=== PATIENT | female | born 1975 | race Caucasian/White ===

== ENCOUNTER 2022-09-09 09:21 | Observation (INO) ==
[2022-09-09] MEDS ORDERED: Lactated Ringers 1000 ml BAG 1,000 ML IV ONE ×2 (09:35→09:51)
[2022-09-09] MEDS ORDERED: PROPRANOLOL 1 MG/ML IV PUSH ONE (09:42)
[2022-09-09] MEDS ORDERED: Hydrocortisone INJ 100 MG/2ML 2 ML VIAL IV ONE (09:58)
[2022-09-09 10:18] LABS: ABS Lymphocytes 1.3 10^3/ul (1.0-4.8); ABS Monocytes 0.5 10^3/ul (0-0.8); ABS Neutrophils 3.3 10^3/ul (1.5-7.7); Eosinophil % 0.7 %; Hematocrit 35 % (35-47); Hemoglobin 11.8 g/dL (12.0-16.0); Mean Corpuscular HGB Conc 34 g/dL (31-36); Mean Corpuscular Hemoglobin 28 pg (27-31); Mean Corpuscular Volume 83 fL (80-97); Mean Platelet Volume 9.6 fL (7.4-10.4); Platelet Count 184 10^3/uL (150-450); Red Blood Count 4.21 10^6 /uL (3.70-4.87); Red Cell Distribution Width 13 % (10-15)
[2022-09-09 10:49] LABS: Albumin 3.8 g/dL (3.2-5.2); Albumin/Globulin Ratio 1.5 (1-3); Calcium 9.3 mg/dL (8.6-10.3); Creatinine, Serum 0.59 mg/dL (0.51-0.95); Globulin 2.6 g/dL (2-4); Potassium 3.4 mmol/L (3.5-5.0); Total Bilirubin 0.4 mg/dL (0.2-1.0); Total Protein 6.4 g/dL (6.4-8.9); eGFR CKD-EPI 113.2 (>60)
[2022-09-09] MEDS ORDERED: NS 0.9% IVPB ONE (11:00)
[2022-09-09] MEDS ORDERED: PROPRANOLOL IVPB ONE (11:00)
[2022-09-09 11:07] LABS: Free T3 6.6 pg/mL (2.5-3.9); Free T4 2.81 ng/dL (0.61-1.12)
[2022-09-09] MEDS ORDERED: Ondansetron 4 mg VIAL 2 MG/ML 2 ml VIAL IV PRN (12:59)
[2022-09-10 05:57] LABS: ABS Lymphocytes 1.7 10^3/ul (1.0-4.8); ABS Monocytes 0.6 10^3/ul (0-0.8); ABS Neutrophils 3.8 10^3/ul (1.5-7.7); Eosinophil % 0.6 %; Hematocrit 36 % (35-47); Hemoglobin 12.1 g/dL (12.0-16.0); Lymphocyte % 28.1 %; Mean Corpuscular HGB Conc 34 g/dL (31-36); Mean Corpuscular Hemoglobin 28 pg (27-31); Mean Corpuscular Volume 84 fL (80-97); Nucleated Red Blood Cells % 0.1; Platelet Count 211 10^3/uL (150-450); Red Cell Distribution Width 13 % (10-15); White Blood Count 6.2 10^3/uL (3.5-10.8)
[2022-09-10 06:08] LABS: Albumin 3.8 g/dL (3.2-5.2); Calcium 9.6 mg/dL (8.6-10.3); Magnesium 1.8 mg/dL (1.9-2.7); Total Bilirubin 0.6 mg/dL (0.2-1.0)
[2022-09-10 06:14] LABS: Albumin/Globulin Ratio 1.4 (1-3); Creatinine, Serum 0.61 mg/dL (0.51-0.95); Globulin 2.7 g/dL (2-4); Total Protein 6.5 g/dL (6.4-8.9); eGFR CKD-EPI 112.3 (>60)
[2022-09-10] MEDS ORDERED: Magnesium Sulfate IV 1GM/100ML 1 GM/100 ML BAG IV ONE (08:10)
[2022-09-11 11:55] VITALS: BP 108/69
== END 2022-09-11 13:00 | disposition home or self-care (01) ==
LOC: EDHOLD 09:21 → ED 09:21 → SUATTDRO 12:59 → MEDTELE 17:47
PROVIDERS: ADMIT Internal Medicine; ATTEND Internal Medicine